=== PATIENT | male | born 1940 | race Caucasian/White ===

== ENCOUNTER 2017-05-19 11:33 | Emergency (ER) | payer OTHER ==
[~2017-05-19] VITALS: Ht 162.6 cm; Wt 67.0 kg
[~2017-05-19 11:33] MED LIST: AMLO10TA2 PO; ASPI1TAB69 PO; ATOR20TA15 PO; CALC1TAB12 PO; CARV12.52 PO; CEPH-460 PO; EFIN1SOL TOPICAL; GLIM1TAB PO; LISI40TA PO; NITR0.4S SL; OMEP20TA93 PO; TRAD5TAB PO
[2017-05-19 11:47] VITALS: BP 149/73; PULSE 80; RESP 17; TEMP 97.9; O2SAT 96
[2017-05-19] MEDS ORDERED: ASPI-516 CHEW (13:29)
[2017-05-19] MEDS ORDERED: TRAM50 PO (13:31)
--- NOTE | 2017-05-19 13:31 | PD ---
HPI Chief Complaint: Pain: Acute or Chronic Time Seen by Provider: 13:24 Travel History International Travel<30 days: No Contact w/Intl Traveler<30days: No Traveled to known affect area: No History of Present Illness HPI 77-year-old male presents to emergency department for evaluation of bilateral lower extremity pain. Pain has been intermittently occurring over the last 2-3 weeks. He states is mostly on the anterior distal lower extremities and is worse at night. Denies any injury. No fever or chills. No alterations in sensation. Patient is diabetic but states that sugars are well-controlled. He has no other symptoms to report. PFSH Past Medical History Atrial Fibrillation: Yes Cancer: No Cardiovascular Problems: Yes (CABG, PACEMAKER, A-FIB, SC ,CHF,CAD) High Cholesterol: Yes Chest Pain: No Coronary Artery Disease: Yes Diabetes: Yes (TYPE II) Patient Takes Glucophage: No Gastrointestinal Disorders: No Glaucoma: No Genitourinary: No Hepatitis: No Hiatal Hernia: No Hypertension: Yes Musculoskeletal: No Neurologic: No Reproductive: No Respiratory: Yes Integumentary: No Myocardial Infarction: Yes Thyroid Disease: No Past Surgical History Cardiac Surgery: Yes Coronary Artery Bypass Graft: Yes Pacemaker: Yes Thoracic Surgery: Yes Other Surgery: Yes Social History Alcohol Use: No Tobacco Use: No Substance Use: No Allergies-Medications (Allergen,Severity, Reaction): Coded Allergies: No Known Allergies (Unverified Adverse Reaction, Unknown, 05/19/17) Reported Meds & Prescriptions Reported Meds & Active Scripts Active Ultram (Tramadol HCl) 50 Mg Tab 50 Mg PO Q8H PRN Reported Aspirin 81 Mg Chew 81 Mg CHEW DAILY Tradjenta (Linagliptin) 5 Mg Tab 5 Mg PO DAILY Omeprazole 20 Mg Tab 20 Mg PO DAILY Lisinopril 40 Mg Tab 40 Mg PO DAILY Glimepiride 1 Mg Tab 1 Mg PO DAILY Take with breakfast or first main meal Carvedilol 12.5 Mg Tab 12.5 Mg PO BID Atorvastatin (Atorvastatin Calcium) 20 Mg Tab 20 Mg PO HS Amlodipine (Amlodipine Besylate) 10 Mg Tab 10 Mg PO DAILY Review of Systems Except as stated in HPI: all other systems reviewed are Neg Physical Exam Narrative GENERAL: Well-nourished male patient, ambulatory in no acute distress. SKIN: Focused skin assessment warm/dry. HEAD: Atraumatic. Normocephalic. EYES: Pupils equal and round. No scleral icterus. No injection or drainage. ENT: No nasal bleeding or discharge. Mucous membranes pink and moist. NECK: Trachea midline. No JVD. CARDIOVASCULAR: Regular rate and rhythm. No murmur appreciated. RESPIRATORY: No accessory muscle use. Clear to auscultation. Breath sounds equal bilaterally. GASTROINTESTINAL: Abdomen soft, non-tender, nondistended. Hepatic and splenic margins not palpable. MUSCULOSKELETAL: No obvious deformities. No clubbing. No cyanosis. No edema. 5+ strength equal bilateral extremities. No deformity. No erythema or edema. Distal pulses are palpable. Cap refill is within normal limits. NEUROLOGICAL: Awake and alert. No obvious cranial nerve deficits. Motor grossly within normal limits. Normal speech. PSYCHIATRIC: Appropriate mood and affect; insight and judgment normal. Data Data Last Documented VS Vital Signs Date Time Temp Pulse Resp B/P (MAP) Pulse Ox O2 Delivery O2 Flow Rate FiO2 05/19/17 11:47 97.9 80 17 149/73 (98) 96 Orders Orders Ed Discharge Order (05/19/17 13:28) [facility] Medical Decision Making Medical Screen Exam Complete: Yes Emergency Medical Condition: Yes Medical Record Reviewed: Yes Differential Diagnosis Tendinitis versus bursitis versus carpal tunnel versus neuropathy versus neuralgia versus paresthesias Narrative Course 77-year-old male presents to emergency department for evaluation of bilateral lower knee pain. This is been ongoing for the last 3 weeks. Patient has very sparse hair on the distal lower extremities. He also has diabetes. His symptoms are likely vascular in origin or neuropathy. His extremities are warm with strong distal pulses. I will give him some pain control. I have encouraged him and his to seek outpatient follow-up with his primary, as well as vascular. They verbalized understanding and will return immediately with any acute worsening symptoms. Diagnosis Primary Impression: Lower extremity pain, bilateral Referrals: Primary Care Physician Vascular Surgeon Patient Instructions: Diabetic Peripheral Neuropathy (ED), General Instructions , Peripheral Artery Disease (ED) Additional Instructions: Follow-up with a primary care provider Vascular studies may be warranted for further evaluation of your pain Return immediately with any acute worsening of symptoms Med/Other Pt SpecificInfo: Prescription(s) given Scripts Tramadol (Ultram) 50 Mg Tab 50 MG PO Q8H Y for PAIN, #15 TAB 0 Refills Prov: Tangela Demarco 05/19/17 Disposition: 01 DISCHARGE HOME Condition: Stable Tangela Demarco May 19, 2017 13:31
== END 2017-05-19 13:42 | disposition home or self-care (01) ==
LOC: PHED 11:33 → PHEFT 13:42
DX: M79.661 Pain in right lower leg (principal); M79.662 Pain in left lower leg; E11.9 Type 2 diabetes mellitus without complications; I10 Essential (primary) hypertension; I48.91 Unspecified atrial fibrillation; I25.10 Atherosclerotic heart disease of native coronary artery without angina pectoris; E78.00 Pure hypercholesterolemia, unspecified; I25.2 Old myocardial infarction; Z79.84 Long term (current) use of oral hypoglycemic drugs
CPT/HCPCS: 99283